=== PATIENT | female | born 1990 | race Caucasian/White ===

== ENCOUNTER 2017-10-01 22:22 | Emergency (ER) | payer MEDICARE, OTHER ==
[~2017-10-01] VITALS: Ht 172.7 cm; Wt 123.6 kg
[2017-10-02] MEDS ORDERED: OLANZapine 5 MG RAPDIS TABLET PO ONE (01:00)
[2017-10-02] MEDS ORDERED: OLANZapine 5 MG TABLET PO ONE (01:00)
[2017-10-02 01:08] LABS: BASOPHILS % (AUTO) 0.7 % (0.0-2.0); EOSINOPHILS % (AUTO) 1.5 % (1.0-6.0); HEMATOCRIT 32.2 % (36-46); HEMOGLOBIN 10.9 g/dL (12.0-16.0); LYMPHOCYTES % (AUTO) 25.6 % (22.0-44.0); MEAN CORPUSCULAR HEMOGLOBIN 27.3 pg (26.0-34.0); MEAN CORPUSCULAR HGB CONC 33.7 G/dL (31.0-37.0); MEAN CORPUSCULAR VOLUME 81 fL (80-100); MONOCYTES # (AUTO) 0.5 K/uL (0.1-1.0); MONOCYTES % (AUTO) 4.6 % (2.0-9.0); NEUTROPHILS # (AUTO) 7.9 K/uL (1.8-7.7); NEUTROPHILS % (AUTO) 67.6 % (40.0-70.0); PLATELET COUNT (AUTO) 712 K/uL (150-450); RED BLOOD CELL COUNT(AUTO) 3.97 MIL/uL (4.00-5.20)
[2017-10-02 01:17] LABS: ANION GAP 7 mmol/L (8-16); CALCIUM, TOTAL 9.1 mg/dL (8.8-10.5); CARBON DIOXIDE 27 mmol/L (22-29); CHLORIDE 101 mmol/L (98-107); CREATININE 0.85 mg/dL (0.60-1.30); GLOMERULAR FILTR. RATE CALC > 60 mL/min (>60); GLUCOSE,RANDOM 102 mg/dL (70-110); POTASSIUM 3.6 mmol/L (3.5-5.1); SODIUM SERUM 135 mmol/L (136-145); UREA NITROGEN, BLOOD 9 mg/dL (7-18)
[2017-10-02 01:24] LABS: ALANINE AMINOTRANSFERASE 30 U/L (12-78); ALBUMIN 3.2 g/dL (3.4-5.0); ALKALINE PHOSPHATASE 67 U/L (46-116); ASPARTATE AMINOTRANSFERASE 30 U/L (15-37); BILIRUBIN,TOTAL 0.3 mg/dL (0.1-1.0); TOTAL PROTEIN, SERUM 8.7 g/dL (6.4-8.2)
[2017-10-02 03:29] VITALS: BP 133/82
== END 2017-10-02 03:37 | disposition home or self-care (01) ==
LOC: EDBD 22:24 → EMS 22:24
DX: F25.9 Schizoaffective disorder, unspecified (principal)
CPT/HCPCS: 36415; 80053; 85025; 99284; G0480

== ENCOUNTER 2017-10-05 09:21 | Emergency (ER) | payer MEDICARE, OTHER ==
[~2017-10-05] VITALS: Ht 177.8 cm; Wt 113.6 kg
[2017-10-05] MEDS ORDERED: HALOPERIDOL 5 MG TABLET PO ONE (10:45)
[2017-10-05] MEDS ORDERED: LORazepam 2 MG TABLET PO ONE (10:45)
[2017-10-05] MEDS ORDERED: IBUPROFEN 600 MG TABLET PO ONE (10:45)
[2017-10-05 11:56] LABS: BASOPHILS % (AUTO) 1.1 % (0.0-2.0); EOSINOPHILS % (AUTO) 3.2 % (1.0-6.0); HEMATOCRIT 29.7 % (36-46); HEMOGLOBIN 10.2 g/dL (12.0-16.0); LYMPHOCYTES # (AUTO) 2.2 K/uL (1.0-4.8); LYMPHOCYTES % (AUTO) 25.1 % (22.0-44.0); MEAN CORPUSCULAR HEMOGLOBIN 27.9 pg (26.0-34.0); MEAN CORPUSCULAR HGB CONC 34.2 G/dL (31.0-37.0); MEAN CORPUSCULAR VOLUME 82 fL (80-100); MONOCYTES # (AUTO) 0.7 K/uL (0.1-1.0); MONOCYTES % (AUTO) 8.4 % (2.0-9.0); NEUTROPHILS # (AUTO) 5.5 K/uL (1.8-7.7); NEUTROPHILS % (AUTO) 62.2 % (40.0-70.0); PLATELET COUNT (AUTO) 558 K/uL (150-450); RED BLOOD CELL COUNT(AUTO) 3.64 MIL/uL (4.00-5.20); RED CELL DISTRIBUTION WIDTH 17.1 % (11.5-14.5)
[2017-10-05 12:04] LABS: ANION GAP 10 mmol/L (8-16); CALCIUM, TOTAL 8.8 mg/dL (8.8-10.5); CARBON DIOXIDE 27 mmol/L (22-29); CHLORIDE 105 mmol/L (98-107); CREATININE 0.92 mg/dL (0.60-1.30); GLOMERULAR FILTR. RATE CALC > 60 mL/min (>60); GLUCOSE,RANDOM 75 mg/dL (70-110); POTASSIUM 3.1 mmol/L (3.5-5.1); SODIUM SERUM 142 mmol/L (136-145); UREA NITROGEN, BLOOD 9 mg/dL (7-18)
[2017-10-05 12:10] LABS: ALANINE AMINOTRANSFERASE 43 U/L (12-78); ALBUMIN 3.3 g/dL (3.4-5.0); ALKALINE PHOSPHATASE 71 U/L (46-116); ASPARTATE AMINOTRANSFERASE 53 U/L (15-37); BILIRUBIN,TOTAL 0.8 mg/dL (0.1-1.0); TOTAL PROTEIN, SERUM 8.2 g/dL (6.4-8.2)
[2017-10-05 12:45] VITALS: BP 109/69
== END 2017-10-05 12:47 | disposition home or self-care (01) ==
LOC: EMS 09:22
DX: M79.671 Pain in right foot (principal); M79.672 Pain in left foot; F29 Unspecified psychosis not due to a substance or known physiological condition; R00.0 Tachycardia, unspecified; F15.10 Other stimulant abuse, uncomplicated
CPT/HCPCS: 36415; 80053; 85025; 99284; G0480

== ENCOUNTER 2017-10-05 17:26 | Inpatient (IN) | payer MEDICARE, MEDICAID ==
[~2017-10-05] VITALS: Ht 177.8 cm; Wt 112.0 kg
[2017-10-05] MEDS ORDERED: HALOPERIDOL 5 MG TABLET PO ONE (18:45)
[2017-10-05] MEDS ORDERED: LORazepam 2 MG TABLET PO ONE (18:45)
[2017-10-05] MEDS ORDERED: SODIUM CHLORIDE 0.9% 1,000 ML IV ONE (18:50)
[2017-10-05] MEDS ORDERED: HALOPERIDOL 5 MG TABLET PO PRN (20:15)
[2017-10-05] MEDS ORDERED: LORazepam 2 MG TABLET PO PRN (20:15)
[2017-10-05] MEDS ORDERED: POTASSIUM CHLORIDE 20 MEQ ER TABLET PO ONE (21:30)
[2017-10-05] MEDS: ZOLPIDEM TARTRATE 10 MG TABLET PO PRN (21:40)
[2017-10-05 22:33] VITALS: BP 112/74
[2017-10-06] MEDS ORDERED: ALBUTEROL SULFATE HFA 90 MCG/PUFF 8 GM INHALER IH PRN (08:45)
[2017-10-06] MEDS ORDERED: BENZOCAINE/MENTHOL LOZENGE MM PRN (08:45)
[2017-10-06] MEDS ORDERED: IBUPROFEN 600 MG TABLET PO PRN (08:45)
[2017-10-06] MEDS ORDERED: LOPERAMIDE HCL 2 MG CAPSULE PO PRN (08:45)
[2017-10-06] MEDS ORDERED: MAGNESIUM HYDROXIDE SUSPENSION 30 ML UDCUP PO PRN (08:45)
[2017-10-06] MEDS ORDERED: PETROLATUM,WHITE 71 GM JELLY TP PRN (08:45)
[2017-10-06] MEDS ORDERED: BACITRACIN 28.4 GM OINTMENT TP PRN (08:45)
[2017-10-06] MEDS ORDERED: MAG HYDROX/AL HYDROX/SIMETH ES 30 ML SUSPENSION UDCUP PO PRN (08:45)
[2017-10-06] MEDS ORDERED: CloNIDine HCL 0.1 MG TABLET PO PRN (08:45)
[2017-10-06] MEDS ORDERED: ONDANSETRON HCL 4 MG TABLET PO PRN (08:45)
[2017-10-06] MEDS ORDERED: ACETAMINOPHEN 325 MG TABLET PO PRN (08:45)
[2017-10-06] MEDS: OLANZapine 5 MG TABLET PO SCH (16:40)
[2017-10-07 07:12] LABS: CHOL/HDL RATIO 3.6 (3.9-5.7); POTASSIUM 4.1 mmol/L (3.5-5.1)
[2017-10-07 08:00] VITALS: BP 116/82
[2017-10-07] MEDS: OLANZapine 5 MG TABLET PO SCH ×2 (08:29→17:40)
[2017-10-07] MEDS: FLUoxetine HCL 20 MG CAPSULE PO SCH (08:29)
[2017-10-08 08:12] VITALS: BP 113/79
[2017-10-08] MEDS: FLUoxetine HCL 20 MG CAPSULE PO SCH (09:00)
[2017-10-08] MEDS: OLANZapine 5 MG TABLET PO SCH ×2 (09:00→16:14)
[2017-10-08 16:29] VITALS: BP 113/64
[2017-10-09 06:26] LABS: BAND NEUTROPHILS % (MANUAL) 0 % (0-5)
[2017-10-09 06:34] LABS: HEMATOCRIT 34.3 % (36-46); HEMOGLOBIN 11.7 g/dL (12.0-16.0); MEAN CORPUSCULAR HEMOGLOBIN 28.5 pg (26.0-34.0); MEAN CORPUSCULAR HGB CONC 34.3 G/dL (31.0-37.0); MEAN CORPUSCULAR VOLUME 83 fL (80-100); PLATELET COUNT (AUTO) 586 K/uL (150-450); RED BLOOD CELL COUNT(AUTO) 4.12 MIL/uL (4.00-5.20); RED CELL DISTRIBUTION WIDTH 17.5 % (11.5-14.5)
[2017-10-09 07:25] LABS: ANION GAP 7 mmol/L (8-16); CALCIUM, TOTAL 8.8 mg/dL (8.8-10.5); CARBON DIOXIDE 28 mmol/L (22-29); CHLORIDE 103 mmol/L (98-107); CHOL/HDL RATIO 3.8 (3.9-5.7); CHOLESTEROL 165 mg/dL (131-200); CREATININE 0.84 mg/dL (0.60-1.30); GLOMERULAR FILTR. RATE CALC > 60 mL/min (>60); GLUCOSE,RANDOM 95 mg/dL (70-110); HDL CHOLESTEROL 44 mg/dL (40-60); LDL CHOL (CALC.) 91 mg/dL (0-130); PHOSPHORUS 4.1 mg/dL (2.5-4.9); POTASSIUM 4.1 mmol/L (3.5-5.1); SODIUM SERUM 138 mmol/L (136-145); THYROID STIMULATING HORMONE 0.64 uIU/mL (0.36-3.74); TRIGLYCERIDES 150 mg/dL (15-150); UREA NITROGEN, BLOOD 13 mg/dL (7-18)
[2017-10-09 08:00] VITALS: BP 119/74
[2017-10-09] MEDS: OLANZapine 5 MG TABLET PO SCH ×2 (09:02→15:57)
[2017-10-09] MEDS: FLUoxetine HCL 20 MG CAPSULE PO SCH (09:02)
[2017-10-09 09:10] LABS: EOSINOPHILS % (MANUAL) 1 % (1-6); LYMPHOCYTES % (MANUAL) 26 % (22-44); MONOCYTES % (MANUAL) 9 % (2-9); SEGMENTED NEUTROPHILS % 64 % (40-70)
[2017-10-09 18:59] VITALS: BP 115/69
[2017-10-10 01:05] VITALS: BP 113/64
[2017-10-10 08:15] VITALS: BP 105/67
[2017-10-10] MEDS: FLUoxetine HCL 20 MG CAPSULE PO SCH (10:04)
[2017-10-10] MEDS: OLANZapine 5 MG TABLET PO SCH ×2 (10:04→16:41)
[2017-10-10 17:09] VITALS: BP 98/48
[2017-10-11 08:05] VITALS: BP 113/74
[2017-10-11] MEDS: FLUoxetine HCL 20 MG CAPSULE PO SCH (08:58)
[2017-10-11] MEDS: OLANZapine 5 MG TABLET PO SCH ×2 (08:59→16:26)
[2017-10-11 19:21] VITALS: BP 102/63
[2017-10-11] MEDS: ZOLPIDEM TARTRATE 10 MG TABLET PO PRN (21:48)
[2017-10-12 02:19] VITALS: BP 98/52
[2017-10-12 08:30] VITALS: BP 121/64
[2017-10-12] MEDS: FLUoxetine HCL 20 MG CAPSULE PO SCH (08:35)
[2017-10-12] MEDS: OLANZapine 5 MG TABLET PO SCH (08:35)
[2017-10-12] MEDS ORDERED: FLUO-191 PO (10:50)
[2017-10-12] MEDS ORDERED: OLAN5TAB27 PO (10:50)
[2017-10-12] MEDS ORDERED: VITAD1000 PO (11:46)
[2017-10-13] MEDS ORDERED: CHOLECALCIFEROL (VIT D3) 1,000 UNITS TABLET PO SCH (09:00)
== END 2017-10-12 14:30 | disposition home or self-care (01) | DRG 885 ==
LOC: EMS 17:27 → 3EX 21:30
DX: F25.0 Schizoaffective disorder, bipolar type (principal); R45.851 Suicidal ideations; F15.20 Other stimulant dependence, uncomplicated; E66.9 Obesity, unspecified; F41.9 Anxiety disorder, unspecified; K59.00 Constipation, unspecified; F17.200 Nicotine dependence, unspecified, uncomplicated; Z79.899 Other long term (current) drug therapy; Z68.35 Body mass index [BMI] 35.0-35.9, adult; Z59.0 Homelessness; Z91.14 Patient's other noncompliance with medication regimen
CPT/HCPCS: 82306; 83735; 84100; 84132; 84443; 85007; 99285; J7030

== ENCOUNTER 2017-10-16 07:20 | Inpatient (IN) | payer MEDICARE, MEDICAID ==
[~2017-10-16] VITALS: Ht 175.3 cm; Wt 110.7 kg
[~2017-10-16 07:20] MED LIST: FLUO-191 PO; OLAN5TAB27 PO; VITAD1000 PO
[2017-10-16 07:55] LABS: BASOPHILS % (AUTO) 0.9 % (0.0-2.0); EOSINOPHILS % (AUTO) 1.2 % (1.0-6.0); HEMATOCRIT 31.5 % (36-46); HEMOGLOBIN 10.7 g/dL (12.0-16.0); LYMPHOCYTES % (AUTO) 21.3 % (22.0-44.0); MEAN CORPUSCULAR HEMOGLOBIN 27.8 pg (26.0-34.0); MEAN CORPUSCULAR VOLUME 82 fL (80-100); MONOCYTES # (AUTO) 0.7 K/uL (0.1-1.0); MONOCYTES % (AUTO) 7.9 % (2.0-9.0); NEUTROPHILS # (AUTO) 6.3 K/uL (1.8-7.7); NEUTROPHILS % (AUTO) 68.7 % (40.0-70.0); PLATELET COUNT (AUTO) 410 K/uL (150-450); RED BLOOD CELL COUNT(AUTO) 3.86 MIL/uL (4.00-5.20); RED CELL DISTRIBUTION WIDTH 16.6 % (11.5-14.5)
[2017-10-16 08:06] LABS: ANION GAP 8 mmol/L (8-16); CARBON DIOXIDE 27 mmol/L (22-29); CHLORIDE 102 mmol/L (98-107); CREATININE 0.83 mg/dL (0.60-1.30); GLOMERULAR FILTR. RATE CALC > 60 mL/min (>60); GLUCOSE,RANDOM 100 mg/dL (70-110); POTASSIUM 3.7 mmol/L (3.5-5.1); SODIUM SERUM 137 mmol/L (136-145); UREA NITROGEN, BLOOD 13 mg/dL (7-18)
[2017-10-16 08:14] LABS: ALANINE AMINOTRANSFERASE 29 U/L (12-78); ALBUMIN 3.7 g/dL (3.4-5.0); ALKALINE PHOSPHATASE 57 U/L (46-116); ASPARTATE AMINOTRANSFERASE 27 U/L (15-37); BILIRUBIN,TOTAL 0.8 mg/dL (0.1-1.0); TOTAL PROTEIN, SERUM 8.6 g/dL (6.4-8.2)
[2017-10-16] MEDS ORDERED: LORazepam 2 MG/ML VIAL IM ONE (10:15)
[2017-10-16] MEDS ORDERED: HALOPERIDOL LACTATE 5 MG/ML VIAL IM ONE (10:15)
[2017-10-16] MEDS ORDERED: HALOPERIDOL 5 MG TABLET PO PRN (12:30)
[2017-10-16] MEDS ORDERED: ZOLPIDEM TARTRATE 10 MG TABLET PO PRN (12:30)
[2017-10-16] MEDS ORDERED: LORazepam 2 MG TABLET PO PRN (12:30)
[2017-10-16 22:02] VITALS: BP 111/58
[2017-10-17 07:48] LABS: CHOL/HDL RATIO 2.8 (3.9-5.7)
[2017-10-17] MEDS: OLANZapine 5 MG TABLET PO SCH ×2 (11:42→20:54)
[2017-10-17] MEDS: FLUoxetine HCL 20 MG CAPSULE PO SCH (11:42)
[2017-10-17 12:50] VITALS: BP 121/63
[2017-10-17 16:45] VITALS: BP 102/72
[2017-10-18 02:06] VITALS: BP 109/67
[2017-10-18] MEDS: FLUoxetine HCL 20 MG CAPSULE PO SCH (10:06)
[2017-10-18] MEDS: OLANZapine 5 MG TABLET PO SCH ×2 (10:07→20:17)
[2017-10-18 19:25] VITALS: BP 111/73
[2017-10-19 04:42] VITALS: BP 105/62
[2017-10-19] MEDS: FLUoxetine HCL 20 MG CAPSULE PO SCH (09:29)
[2017-10-19] MEDS ORDERED: MAGNESIUM HYDROXIDE SUSPENSION 30 ML UDCUP PO PRN (09:30)
[2017-10-19] MEDS ORDERED: BENZOCAINE/MENTHOL LOZENGE MM PRN (09:30)
[2017-10-19] MEDS ORDERED: LOPERAMIDE HCL 2 MG CAPSULE PO PRN (09:30)
[2017-10-19] MEDS ORDERED: PETROLATUM,WHITE 71 GM JELLY TP PRN (09:30)
[2017-10-19] MEDS ORDERED: ONDANSETRON HCL 4 MG TABLET PO PRN (09:30)
[2017-10-19] MEDS ORDERED: ALBUTEROL SULFATE HFA 90 MCG/PUFF 8 GM INHALER IH PRN (09:30)
[2017-10-19] MEDS ORDERED: ACETAMINOPHEN 325 MG TABLET PO PRN (09:30)
[2017-10-19] MEDS ORDERED: CloNIDine HCL 0.1 MG TABLET PO PRN (09:30)
[2017-10-19] MEDS ORDERED: BACITRACIN 28.4 GM OINTMENT TP PRN (09:30)
[2017-10-19] MEDS: OLANZapine 5 MG TABLET PO SCH ×2 (09:30→21:03)
[2017-10-19] MEDS ORDERED: MAG HYDROX/AL HYDROX/SIMETH ES 30 ML SUSPENSION UDCUP PO PRN (09:30)
[2017-10-19] MEDS ORDERED: IBUPROFEN 600 MG TABLET PO PRN (09:30)
[2017-10-19 17:55] VITALS: BP 120/77
[2017-10-20 04:57] VITALS: BP 120/67
[2017-10-20 09:03] VITALS: BP 105/74
[2017-10-20] MEDS: FLUoxetine HCL 20 MG CAPSULE PO SCH (10:20)
[2017-10-20] MEDS: OLANZapine 5 MG TABLET PO SCH ×2 (10:20→20:08)
[2017-10-20 16:44] VITALS: BP 106/56
[2017-10-21] MEDS: OLANZapine 5 MG TABLET PO SCH (08:26)
[2017-10-21] MEDS: FLUoxetine HCL 20 MG CAPSULE PO SCH (08:26)
[2017-10-21] MEDS ORDERED: FLUO-191 PO (08:59)
[2017-10-21] MEDS ORDERED: OLAN5TAB27 PO (08:59)
[2017-10-21 10:54] VITALS: BP 103/62
== END 2017-10-21 13:32 | disposition home or self-care (01) | DRG 885 ==
LOC: EMS 07:22 → 3EI 21:35
DX: F25.1 Schizoaffective disorder, depressive type (principal); F15.20 Other stimulant dependence, uncomplicated; K59.00 Constipation, unspecified; E66.9 Obesity, unspecified; F17.210 Nicotine dependence, cigarettes, uncomplicated; F41.9 Anxiety disorder, unspecified; G47.00 Insomnia, unspecified; Z79.899 Other long term (current) drug therapy; Z68.36 Body mass index [BMI] 36.0-36.9, adult
CPT/HCPCS: 87081; 96372; 99285; G0480; J1630; J2060

== ENCOUNTER 2017-11-14 05:28 | Inpatient (IN) | payer MEDICARE, MEDICAID ==
[~2017-11-14] VITALS: Ht 170.2 cm; Wt 115.4 kg
[~2017-11-14 05:28] MED LIST changes: -VITAD1000 PO
[2017-11-14 06:23] LABS: EOSINOPHILS % (AUTO) 0.7 % (1.0-6.0); HEMOGLOBIN 11.1 g/dL (12.0-16.0); LYMPHOCYTES # (AUTO) 2.4 K/uL (1.0-4.8); MEAN CORPUSCULAR HGB CONC 34.5 G/dL (31.0-37.0); MEAN CORPUSCULAR VOLUME 84 fL (80-100); MONOCYTES # (AUTO) 0.9 K/uL (0.1-1.0); MONOCYTES % (AUTO) 9.6 % (2.0-9.0); NEUTROPHILS % (AUTO) 63.7 % (40.0-70.0); PLATELET COUNT (AUTO) 408 K/uL (150-450); RED BLOOD CELL COUNT(AUTO) 3.81 MIL/uL (4.00-5.20); RED CELL DISTRIBUTION WIDTH 16.7 % (11.5-14.5)
[2017-11-14 06:27] LABS: ANION GAP 7 mmol/L (8-16); CARBON DIOXIDE 27 mmol/L (22-29); CHLORIDE 102 mmol/L (98-107); GLOMERULAR FILTR. RATE CALC > 60 mL/min (>60); GLUCOSE,RANDOM 85 mg/dL (70-110); POTASSIUM 4.2 mmol/L (3.5-5.1); SODIUM SERUM 136 mmol/L (136-145); UREA NITROGEN, BLOOD 10 mg/dL (7-18)
[2017-11-14 06:33] LABS: ALANINE AMINOTRANSFERASE 28 U/L (12-78); ALBUMIN 3.6 g/dL (3.4-5.0); ALKALINE PHOSPHATASE 63 U/L (46-116); ASPARTATE AMINOTRANSFERASE 24 U/L (15-37); BILIRUBIN,TOTAL 0.7 mg/dL (0.1-1.0); TOTAL PROTEIN, SERUM 8.5 g/dL (6.4-8.2)
[2017-11-14] MEDS ORDERED: LORazepam 2 MG/ML VIAL IM ONE (07:15)
[2017-11-14 12:42] LABS: APPEARANCE,URINE CLEAR (CLEAR); BILIRUBIN,URINE NEGATIVE (NEGATIVE); GLUCOSE, URINE (UA) NEGATIVE (NEGATIVE); KETONES,URINE 40 mg/dL (NEGATIVE); LEUKOCYTE ESTERASE ,URINE TRACE (NEGATIVE); NITRATE,URINE NEGATIVE (NEGATIVE); OCCULT BLOOD,URINE NEGATIVE (NEGATIVE); PH,URINE 5.5 (5.0-8.0); PROTEIN,URINE NEGATIVE (NEGATIVE); UROBILINOGEN,URINE 0.2 mg/dL (<=1.0)
[2017-11-14 12:53] LABS: BACTERIA,URINE Rare /HPF (None Seen); RBC,URINE None Seen /HPF (0-2); SQUAMOUS EPITHELIAL CELL,UR Moderate /LPF (None Seen); WBC,URINE 0-2 /HPF (0-5)
[2017-11-14 14:14] LABS: AMPHET/METH SCREEN,URINE POSITIVE (NEGATIVE); BARBITURATE SCREEN, URINE NEGATIVE (NEGATIVE); BENZODIAZEPINES SCREEN,URINE NEGATIVE (NEGATIVE); CANNABINOID SCREEN,URINE NEGATIVE (NEGATIVE); COCAINE SCREEN,URINE NEGATIVE (NEGATIVE); METHADONE SCREEN, URINE NEGATIVE (NEGATIVE); OPIATE SCREEN,URINE NEGATIVE (NEGATIVE)
[2017-11-14 14:15] LABS: PHENCYCLIDINE SCREEN,URINE NEGATIVE (NEGATIVE)
[2017-11-14] MEDS ORDERED: HALOPERIDOL 5 MG TABLET PO PRN (16:00)
[2017-11-14] MEDS ORDERED: LORazepam 2 MG TABLET PO PRN (16:00)
[2017-11-14] MEDS ORDERED: ZOLPIDEM TARTRATE 10 MG TABLET PO PRN (16:00)
[2017-11-14 18:08] VITALS: BP 119/75
[2017-11-14] MEDS: OLANZapine 10 MG TABLET PO SCH (20:37)
[2017-11-14] MEDS ORDERED: BACITRACIN 28.4 GM OINTMENT TP PRN (22:15)
[2017-11-14] MEDS ORDERED: ONDANSETRON HCL 4 MG TABLET PO PRN (22:15)
[2017-11-14] MEDS ORDERED: MAG HYDROX/AL HYDROX/SIMETH ES 30 ML SUSPENSION UDCUP PO PRN (22:15)
[2017-11-14] MEDS ORDERED: ACETAMINOPHEN 325 MG TABLET PO PRN (22:15)
[2017-11-14] MEDS ORDERED: IBUPROFEN 600 MG TABLET PO PRN (22:15)
[2017-11-14] MEDS ORDERED: MAGNESIUM HYDROXIDE SUSPENSION 30 ML UDCUP PO PRN (22:15)
[2017-11-14] MEDS ORDERED: CloNIDine HCL 0.1 MG TABLET PO PRN (22:15)
[2017-11-14] MEDS ORDERED: ALBUTEROL SULFATE HFA 90 MCG/PUFF 8 GM INHALER IH PRN (22:15)
[2017-11-14] MEDS ORDERED: PETROLATUM,WHITE 71 GM JELLY TP PRN (22:15)
[2017-11-14] MEDS ORDERED: BENZOCAINE/MENTHOL LOZENGE MM PRN (22:15)
[2017-11-14] MEDS ORDERED: LOPERAMIDE HCL 2 MG CAPSULE PO PRN (22:15)
[2017-11-15] MEDS: OMEPRAZOLE 20 MG CAPSULE PO SCH (08:19)
[2017-11-15] MEDS: CHOLECALCIFEROL (VIT D3) 1,000 UNITS TABLET PO SCH (08:19)
[2017-11-15] MEDS: OLANZapine 10 MG TABLET PO SCH ×2 (08:19→20:32)
[2017-11-15] MEDS: DOCUSATE SODIUM 100 MG CAPSULE PO SCH (08:19)
[2017-11-15] MEDS: FLUoxetine HCL 20 MG CAPSULE PO SCH (08:19)
[2017-11-15 09:27] VITALS: BP 110/66
[2017-11-15 19:53] VITALS: BP 106/64
[2017-11-15] MEDS ORDERED: OLANZapine 5 MG TABLET PO SCH (21:00)
[2017-11-16 02:05] VITALS: BP 113/76
[2017-11-16] MEDS: CHOLECALCIFEROL (VIT D3) 1,000 UNITS TABLET PO SCH (08:10)
[2017-11-16] MEDS: FLUoxetine HCL 20 MG CAPSULE PO SCH (08:10)
[2017-11-16] MEDS: OMEPRAZOLE 20 MG CAPSULE PO SCH (08:10)
[2017-11-16] MEDS: OLANZapine 10 MG TABLET PO SCH ×2 (08:10→20:16)
[2017-11-16] MEDS: DOCUSATE SODIUM 100 MG CAPSULE PO SCH (08:10)
[2017-11-16] MEDS ORDERED: FLUoxetine HCL 20 MG CAPSULE PO SCH (09:00)
[2017-11-16 10:20] VITALS: BP 127/77
[2017-11-16 17:03] VITALS: BP 97/64
[2017-11-17] MEDS: DOCUSATE SODIUM 100 MG CAPSULE PO SCH (08:10)
[2017-11-17] MEDS: FLUoxetine HCL 20 MG CAPSULE PO SCH (08:10)
[2017-11-17] MEDS: OLANZapine 10 MG TABLET PO SCH ×2 (08:10→20:49)
[2017-11-17] MEDS: CHOLECALCIFEROL (VIT D3) 1,000 UNITS TABLET PO SCH (08:10)
[2017-11-17] MEDS: OMEPRAZOLE 20 MG CAPSULE PO SCH (08:10)
[2017-11-17 08:55] VITALS: BP 111/72
[2017-11-17 16:30] VITALS: BP 130/76
[2017-11-18] MEDS: OMEPRAZOLE 20 MG CAPSULE PO SCH (08:30)
[2017-11-18] MEDS: FLUoxetine HCL 20 MG CAPSULE PO SCH (08:30)
[2017-11-18] MEDS: CHOLECALCIFEROL (VIT D3) 1,000 UNITS TABLET PO SCH (08:30)
[2017-11-18] MEDS: DOCUSATE SODIUM 100 MG CAPSULE PO SCH (08:30)
[2017-11-18] MEDS: OLANZapine 10 MG TABLET PO SCH ×2 (08:30→20:09)
[2017-11-18 08:43] VITALS: BP 125/73
[2017-11-18 18:06] VITALS: BP 105/62
[2017-11-19] MEDS: OMEPRAZOLE 20 MG CAPSULE PO SCH (08:11)
[2017-11-19] MEDS: DOCUSATE SODIUM 100 MG CAPSULE PO SCH (08:11)
[2017-11-19] MEDS: CHOLECALCIFEROL (VIT D3) 1,000 UNITS TABLET PO SCH (08:11)
[2017-11-19] MEDS: FLUoxetine HCL 20 MG CAPSULE PO SCH (08:11)
[2017-11-19] MEDS: OLANZapine 10 MG TABLET PO SCH ×2 (08:11→20:56)
[2017-11-19 08:30] VITALS: BP 123/69
[2017-11-19 18:00] VITALS: BP 102/62
[2017-11-20] MEDS: FLUoxetine HCL 20 MG CAPSULE PO SCH (08:10)
[2017-11-20] MEDS: OLANZapine 10 MG TABLET PO SCH ×2 (08:10→20:32)
[2017-11-20] MEDS: CHOLECALCIFEROL (VIT D3) 1,000 UNITS TABLET PO SCH (08:10)
[2017-11-20] MEDS: OMEPRAZOLE 20 MG CAPSULE PO SCH (08:10)
[2017-11-20] MEDS: DOCUSATE SODIUM 100 MG CAPSULE PO SCH (08:10)
[2017-11-20 17:00] VITALS: BP 100/63
[2017-11-21 03:23] VITALS: BP 101/66
[2017-11-21] MEDS: OLANZapine 10 MG TABLET PO SCH ×2 (08:11→20:10)
[2017-11-21] MEDS: FLUoxetine HCL 20 MG CAPSULE PO SCH (08:11)
[2017-11-21] MEDS: DOCUSATE SODIUM 100 MG CAPSULE PO SCH (08:11)
[2017-11-21] MEDS: CHOLECALCIFEROL (VIT D3) 1,000 UNITS TABLET PO SCH (08:11)
[2017-11-21] MEDS: OMEPRAZOLE 20 MG CAPSULE PO SCH (08:11)
[2017-11-21 10:49] VITALS: BP 102/58
[2017-11-21 17:20] VITALS: BP 111/62
[2017-11-22] MEDS: CHOLECALCIFEROL (VIT D3) 1,000 UNITS TABLET PO SCH (07:57)
[2017-11-22] MEDS: FLUoxetine HCL 20 MG CAPSULE PO SCH (07:57)
[2017-11-22] MEDS: DOCUSATE SODIUM 100 MG CAPSULE PO SCH (07:57)
[2017-11-22] MEDS: OMEPRAZOLE 20 MG CAPSULE PO SCH (07:57)
[2017-11-22 09:01] VITALS: BP 132/96
[2017-11-22] MEDS: OLANZapine 10 MG TABLET PO SCH ×2 (09:37→21:01)
[2017-11-22 17:00] VITALS: BP 111/60
[2017-11-23 06:01] VITALS: BP 118/72
[2017-11-23] MEDS: OLANZapine 10 MG TABLET PO SCH ×2 (08:00→20:52)
[2017-11-23] MEDS: CHOLECALCIFEROL (VIT D3) 1,000 UNITS TABLET PO SCH (08:00)
[2017-11-23] MEDS: OMEPRAZOLE 20 MG CAPSULE PO SCH (08:00)
[2017-11-23] MEDS: FLUoxetine HCL 20 MG CAPSULE PO SCH (08:00)
[2017-11-23] MEDS: DOCUSATE SODIUM 100 MG CAPSULE PO SCH (08:01)
[2017-11-23 10:19] VITALS: BP 115/71
[2017-11-23 17:00] VITALS: BP 108/59
[2017-11-24] MEDS ORDERED: FLUO-191 PO (04:11)
[2017-11-24] MEDS ORDERED: OLAN10TA3 PO (04:12)
[2017-11-24 08:05] VITALS: BP 132/82
[2017-11-24] MEDS: CHOLECALCIFEROL (VIT D3) 1,000 UNITS TABLET PO SCH (08:47)
[2017-11-24] MEDS: OLANZapine 10 MG TABLET PO SCH (08:47)
[2017-11-24] MEDS: OMEPRAZOLE 20 MG CAPSULE PO SCH (08:47)
[2017-11-24] MEDS: DOCUSATE SODIUM 100 MG CAPSULE PO SCH (08:47)
[2017-11-24] MEDS: FLUoxetine HCL 20 MG CAPSULE PO SCH (08:47)
[2017-11-24] MEDS ORDERED: VITAD1000 PO (08:58)
[2017-11-24] MEDS ORDERED: DSS100 PO (08:59)
[2017-11-24] MEDS ORDERED: OMEP20 PO (08:59)
== END 2017-11-24 10:00 | disposition home or self-care (01) | DRG 885 ==
LOC: EMS 05:29 → 3EX 16:37
DX: F25.1 Schizoaffective disorder, depressive type (principal); F15.20 Other stimulant dependence, uncomplicated; F17.200 Nicotine dependence, unspecified, uncomplicated; E55.9 Vitamin D deficiency, unspecified; F41.9 Anxiety disorder, unspecified; G47.00 Insomnia, unspecified; K59.00 Constipation, unspecified; Z79.899 Other long term (current) drug therapy
CPT/HCPCS: 51701; 87081; 93005; 96372; 99285; G0480; J2060

== ENCOUNTER 2017-12-09 03:47 | Inpatient (IN) | payer MEDICARE, MEDICAID ==
[~2017-12-09] VITALS: Ht 165.1 cm; Wt 114.0 kg
[~2017-12-09 03:47] MED LIST changes: +DSS100 PO; +OLAN10TA3 PO; -OLAN5TAB27 PO; +OMEP20 PO; +VITAD1000 PO
[2017-12-09 08:17] LABS: AMPHET/METH SCREEN,URINE POSITIVE (NEGATIVE); BARBITURATE SCREEN, URINE NEGATIVE (NEGATIVE); BENZODIAZEPINES SCREEN,URINE NEGATIVE (NEGATIVE); CANNABINOID SCREEN,URINE NEGATIVE (NEGATIVE); COCAINE SCREEN,URINE NEGATIVE (NEGATIVE); METHADONE SCREEN, URINE NEGATIVE (NEGATIVE); OPIATE SCREEN,URINE NEGATIVE (NEGATIVE)
[2017-12-09 08:18] LABS: PHENCYCLIDINE SCREEN,URINE NEGATIVE (NEGATIVE)
[2017-12-09] MEDS ORDERED: OLANZapine 5 MG TABLET PO ONE (09:30)
[2017-12-09] MEDS ORDERED: LORazepam 2 MG TABLET PO PRN (09:45)
[2017-12-09] MEDS ORDERED: ZOLPIDEM TARTRATE 10 MG TABLET PO PRN (09:45)
[2017-12-09] MEDS ORDERED: HALOPERIDOL 5 MG TABLET PO PRN (09:45)
[2017-12-09 09:50] LABS: EOSINOPHILS % (AUTO) 1.7 % (1.0-6.0); HEMATOCRIT 34.6 % (36-46); HEMOGLOBIN 11.5 g/dL (12.0-16.0); LYMPHOCYTES # (AUTO) 1.8 K/uL (1.0-4.8); LYMPHOCYTES % (AUTO) 23.4 % (22.0-44.0); MEAN CORPUSCULAR HEMOGLOBIN 27.2 pg (26.0-34.0); MEAN CORPUSCULAR HGB CONC 33.3 G/dL (31.0-37.0); MEAN CORPUSCULAR VOLUME 82 fL (80-100); MONOCYTES # (AUTO) 0.8 K/uL (0.1-1.0); NEUTROPHILS # (AUTO) 4.9 K/uL (1.8-7.7); NEUTROPHILS % (AUTO) 63.9 % (40.0-70.0); PLATELET COUNT (AUTO) 391 K/uL (150-450); RED BLOOD CELL COUNT(AUTO) 4.23 MIL/uL (4.00-5.20); RED CELL DISTRIBUTION WIDTH 16.9 % (11.5-14.5)
[2017-12-09 09:57] LABS: ANION GAP 7 mmol/L (8-16); CALCIUM, TOTAL 9.3 mg/dL (8.8-10.5); CARBON DIOXIDE 31 mmol/L (22-29); CHLORIDE 104 mmol/L (98-107); CREATININE 0.86 mg/dL (0.60-1.30); GLOMERULAR FILTR. RATE CALC > 60 mL/min (>60); GLUCOSE,RANDOM 97 mg/dL (70-110); SODIUM SERUM 142 mmol/L (136-145); UREA NITROGEN, BLOOD 13 mg/dL (7-18)
[2017-12-09 10:02] LABS: ALANINE AMINOTRANSFERASE 38 U/L (12-78); ALBUMIN 3.9 g/dL (3.4-5.0); ALKALINE PHOSPHATASE 62 U/L (46-116); ASPARTATE AMINOTRANSFERASE 30 U/L (15-37); BILIRUBIN,TOTAL 0.7 mg/dL (0.1-1.0); TOTAL PROTEIN, SERUM 8.6 g/dL (6.4-8.2)
[2017-12-09 11:09] VITALS: BP 124/74
[2017-12-09 19:09] VITALS: BP 119/71
[2017-12-09] MEDS: OLANZapine 10 MG TABLET PO SCH (20:34)
[2017-12-10 04:30] VITALS: BP 147/56
[2017-12-10] MEDS: OLANZapine 10 MG TABLET PO SCH ×2 (08:21→20:17)
[2017-12-10] MEDS: FLUoxetine HCL 20 MG CAPSULE PO SCH (08:21)
[2017-12-10 09:08] VITALS: BP 107/66
[2017-12-10] MEDS ORDERED: BACITRACIN 28.4 GM OINTMENT TP PRN (18:30)
[2017-12-10] MEDS ORDERED: MAGNESIUM HYDROXIDE SUSPENSION 30 ML UDCUP PO PRN (18:30)
[2017-12-10] MEDS ORDERED: PETROLATUM,WHITE 71 GM JELLY TP PRN (18:30)
[2017-12-10] MEDS ORDERED: IBUPROFEN 600 MG TABLET PO PRN (18:30)
[2017-12-10] MEDS ORDERED: CloNIDine HCL 0.1 MG TABLET PO PRN (18:30)
[2017-12-10] MEDS ORDERED: ACETAMINOPHEN 325 MG TABLET PO PRN (18:30)
[2017-12-10] MEDS ORDERED: MAG HYDROX/AL HYDROX/SIMETH ES 30 ML SUSPENSION UDCUP PO PRN (18:30)
[2017-12-10] MEDS ORDERED: BENZOCAINE/MENTHOL LOZENGE MM PRN (18:30)
[2017-12-10] MEDS ORDERED: ONDANSETRON HCL 4 MG TABLET PO PRN (18:30)
[2017-12-10] MEDS ORDERED: ALBUTEROL SULFATE HFA 90 MCG/PUFF 8 GM INHALER IH PRN (18:30)
[2017-12-10] MEDS ORDERED: LOPERAMIDE HCL 2 MG CAPSULE PO PRN (18:30)
[2017-12-10 19:00] VITALS: BP 127/68
[2017-12-11 01:35] VITALS: BP 106/61
[2017-12-11] MEDS: OLANZapine 10 MG TABLET PO SCH ×2 (08:19→20:25)
[2017-12-11] MEDS: FLUoxetine HCL 20 MG CAPSULE PO SCH (08:23)
[2017-12-11] MEDS: DOCUSATE SODIUM 100 MG CAPSULE PO SCH (08:23)
[2017-12-11] MEDS: OMEPRAZOLE 20 MG CAPSULE PO SCH (08:23)
[2017-12-11 08:48] VITALS: BP 115/66
[2017-12-11 17:00] VITALS: BP 98/59
[2017-12-12 08:11] VITALS: BP 116/75
[2017-12-12] MEDS: FLUoxetine HCL 20 MG CAPSULE PO SCH (08:35)
[2017-12-12] MEDS: OMEPRAZOLE 20 MG CAPSULE PO SCH (08:35)
[2017-12-12] MEDS: DOCUSATE SODIUM 100 MG CAPSULE PO SCH (08:35)
[2017-12-12] MEDS: OLANZapine 10 MG TABLET PO SCH ×2 (08:36→20:39)
[2017-12-12 22:07] VITALS: BP 113/72
[2017-12-13] MEDS: FLUoxetine HCL 20 MG CAPSULE PO SCH (09:48)
[2017-12-13] MEDS: OMEPRAZOLE 20 MG CAPSULE PO SCH (09:49)
[2017-12-13] MEDS: DOCUSATE SODIUM 100 MG CAPSULE PO SCH (09:49)
[2017-12-13] MEDS: OLANZapine 10 MG TABLET PO SCH ×2 (09:49→20:24)
[2017-12-13 13:57] VITALS: BP 124/68
[2017-12-13 21:46] VITALS: BP 115/76
[2017-12-14] MEDS: FLUoxetine HCL 20 MG CAPSULE PO SCH (08:16)
[2017-12-14] MEDS: DOCUSATE SODIUM 100 MG CAPSULE PO SCH (08:16)
[2017-12-14] MEDS: OMEPRAZOLE 20 MG CAPSULE PO SCH (08:16)
[2017-12-14] MEDS: OLANZapine 10 MG TABLET PO SCH ×2 (08:16→20:27)
[2017-12-14 10:18] VITALS: BP 110/73
[2017-12-15 00:10] VITALS: BP 112/78
[2017-12-15] MEDS: DOCUSATE SODIUM 100 MG CAPSULE PO SCH (08:26)
[2017-12-15] MEDS: OLANZapine 10 MG TABLET PO SCH ×2 (08:26→20:37)
[2017-12-15] MEDS: OMEPRAZOLE 20 MG CAPSULE PO SCH (08:26)
[2017-12-15] MEDS: FLUoxetine HCL 20 MG CAPSULE PO SCH (08:26)
[2017-12-15 09:44] VITALS: BP 112/78
[2017-12-15 17:07] VITALS: BP 103/66
[2017-12-16] MEDS: OLANZapine 10 MG TABLET PO SCH ×2 (08:29→20:14)
[2017-12-16] MEDS: FLUoxetine HCL 20 MG CAPSULE PO SCH (08:29)
[2017-12-16] MEDS: OMEPRAZOLE 20 MG CAPSULE PO SCH (08:29)
[2017-12-16] MEDS: DOCUSATE SODIUM 100 MG CAPSULE PO SCH (08:29)
[2017-12-16 08:30] VITALS: BP 111/61
[2017-12-16 20:28] VITALS: BP_SYST 111; BP_SYST 132; BP_DIAS 68; BP_DIAS 74
[2017-12-17 08:30] VITALS: BP 99/63
[2017-12-17] MEDS: OLANZapine 10 MG TABLET PO SCH ×2 (08:32→20:07)
[2017-12-17] MEDS: FLUoxetine HCL 20 MG CAPSULE PO SCH (08:32)
[2017-12-17] MEDS: OMEPRAZOLE 20 MG CAPSULE PO SCH (08:32)
[2017-12-17] MEDS: DOCUSATE SODIUM 100 MG CAPSULE PO SCH (08:32)
[2017-12-17 17:58] VITALS: BP 97/62
[2017-12-18] MEDS ORDERED: OLAN10TA3 PO (04:45)
[2017-12-18] MEDS ORDERED: FLUO-191 PO (04:45)
[2017-12-18] MEDS: DOCUSATE SODIUM 100 MG CAPSULE PO SCH (08:24)
[2017-12-18] MEDS: FLUoxetine HCL 20 MG CAPSULE PO SCH (08:24)
[2017-12-18] MEDS: OMEPRAZOLE 20 MG CAPSULE PO SCH (08:25)
[2017-12-18] MEDS: OLANZapine 10 MG TABLET PO SCH (08:25)
[2017-12-18] MEDS ORDERED: DSS100 PO (09:26)
[2017-12-18] MEDS ORDERED: OMEP20 PO (09:26)
[2017-12-18 09:43] VITALS: BP 111/65
== END 2017-12-18 15:27 | disposition home or self-care (01) | DRG 885 ==
LOC: EMS 03:48 → 3EX 10:14
PROVIDERS: ADMIT Psychiatry & Neurology Psychiatry; ATTEND Psychiatry & Neurology Psychiatry
DX: F25.9 Schizoaffective disorder, unspecified (principal); R45.851 Suicidal ideations; F41.9 Anxiety disorder, unspecified; G47.00 Insomnia, unspecified; K59.00 Constipation, unspecified; F17.200 Nicotine dependence, unspecified, uncomplicated; E55.9 Vitamin D deficiency, unspecified; F15.90 Other stimulant use, unspecified, uncomplicated; Z71.6 Tobacco abuse counseling
CPT/HCPCS: 87081; 99285